=== PATIENT | female | born 1975 | race African-American/Black ===

== ENCOUNTER 2019-12-04 19:02 | Emergency (ER) | payer OTHER ==
[2019-12-04] MEDS ORDERED: SODIUM CHLORIDE 1,000 ML IV ONE (19:09)
[2019-12-04] MEDS ORDERED: METOCLOPRAMIDE HCL INJECTION 10 MG/2 ML VIAL IVPUSH STA (19:09)
--- NOTE | 2019-12-04 19:09 | PDOC ---
Rapid Medical Evaluation Time Seen by Provider: 12/04/19 19:03 Medical Evaluation: Allergies Allergy/AdvReac Type Severity Reaction Status Date / Time No Known Allergies Allergy Verified 07/27/15 10:31 12/04/19 19:04 I have performed a brief in-person evaluation of this patient. CC: coronal headache followed by expressive aphasia starting at 1200 noon. Now at baseline. PE: No focal findings. [place] negative. Orders: labs, urine, ekg Patient will proceed to ED for further evaluation. Discharge Disposition - Diagnosis Headache - Referrals - Patient Instructions - Post Discharge Activity
[2019-12-04 19:16] VITALS: TEMP 98.4; BMI 30.4
--- NOTE | 2019-12-04 19:20 | PDOC ---
History of Present Illness - General Chief Complaint: Headache Stated Complaint: HEADACHE Time Seen by Provider: 12/04/19 19:03 History Source: Patient Exam Limitations: No Limitations - History of Present Illness Initial Comments: 44 y.o female with history of DM, HTN, and smoking presents to the ED with a headache that started today. She describes sudden onset left sided GRAY that became constant, and she describes as pressure. She said that at the time she had difficulty finding words, but no difficulty speaking. She reported some left arm numbness, which she attributes may be from ulnar nerve surgery in the past, but is unsure. She reported left arm weakness, some confusion, dizziness, and nausea. She was recently prescribed losartan but hasn't yet started it. Denied vision changes, ataxia, chest pain, SOB, syncope, vomiting. 12/04/19 20:08 tPA Exclusion checklist 3-4.5h - Time Elapsed Date last known well: 12/04/19 Time last known well: 12:00 Elaspsed time: Day(s) and 10 Hour(s) and 10 Minutes - Thrombolytic Therapy Candidate Is patient eligible for thrombolytic therapy: No - Relative Exclusion Criteria 3-4.5 hr Stroke severity too mild (non-disabling): Yes - Ineligibility reason(s) Reasons No tPA given: Outside of window - delayed arrival, See reason(s) noted above (nihss 0) NIH Stroke Scale - Last Known Well Date/Time & Onset Date Last Known Well: 12/04/19 Time Last Known Well: 12:00 - Initial Evaluation Level of consciousness: Alert Ask patient the month and their age: Answers both correctly Ask patient to open & close eyes; make fist and let go: Obeys both correctly Best gaze (horizontal eye movement): Normal Visual field testing: No visual field loss Facial paresis (Show teeth/raise eyebrows/close eyes tight): Normal symmetrical movement Motor Function: Left Arm: Normal Motor Function: Right Arm: Normal (extends arm 90 (or 45) degrees for 10 seconds without drift Motor Function: Left Leg: Normal (extends leg 30 degrees for 5 seconds without drift) Motor Function: Right Leg: Normal (extends leg 30 degrees for 5 seconds without drift) Limb Ataxia: No ataxia Sensory(Use pinprick test arms,legs,trunk,face/side to side): Normal Best language (Describe picture, name items, read sentences): No Aphasia Dysarthria (read several words): Normal articulation Extinction and Inattention: No abnormality - Total Score NIH Stroke Scale Score: 0 Past History - Medical History Allergies/Adverse Reactions: Allergies Allergy/AdvReac Type Severity Reaction Status Date / Time No Known Allergies Allergy Verified 12/04/19 19:11 Home Medications: Ambulatory Orders Aspirin [ASA -] 81 mg PO DAILY 09/30/14 Cefdinir [Omnicef -] 300 mg PO BID #20 capsule 09/30/14 Simvastatin [Zocor -] 20 mg PO DAILY 09/30/14 metFORMIN HCL [Glucophage] 2,000 mg PO DAILY 09/30/14 COPD: No Diabetes: Yes HTN: Yes (NEW DIAGNOSED) Hypercholesterolemia: Yes - Psycho-Social/Smoking History Smoking History: Never smoked Have you smoked in the past 12 months: No Number of Cigarettes Smoked Daily: 3 Information on smoking cessation initiated: No 'Breaking Loose' booklet given: 09/30/14 - Substance Abuse Hx (Audit-C & DAST Scrn) How often the patient has a drink containing alcohol: Never Score: In Men: 4 or > Positive; In Women: 3 or > Positive: 0 Screen Result (Pos requires Nsg. Audit-10AR): Negative In the last yr the pt used illegal drug/Rx for NonMed reason: No Score: Yes response is considered Positive: 0 Screen Result (Positive result requires Nsg. DAST-10): Negative Review of Systems - Review of Systems Able to Perform ROS?: Yes Is the patient limited Chinese proficient: No Constitutional: No: Chills, Fever HEENTM: No: Eye Pain, Recent change in vision Respiratory: No: Cough, Shortness of Breath Cardiac (ROS): Yes: Lightheadedness. No: Chest Pain, Syncope ABD/GI: Yes: Nausea. No: Constipated, Diarrhea, Vomiting : No: Burning, Dysuria Musculoskeletal: Yes: Back Pain Neurological: Yes: Headache, Numbness, Weakness, Dizziness. No: Tingling, Unsteady Gait, Ataxia All Other Systems: Reviewed and Negative *Physical Exam - Vital Signs Last Vital Signs Temp Pulse Resp BP Pulse Ox 98.4 F 89 18 187/112 H 99 12/04/19 19:03 12/04/19 19:03 12/04/19 19:03 12/04/19 19:03 12/04/19 19:03 - Physical Exam General Appearance: Yes: Nourished, Appropriately Dressed. No: Apparent Distress HEENT: positive: EOMI, OSORIO, Normal Voice Neck: positive: Trachea midline Respiratory/Chest: positive: Lungs Clear, Normal Breath Sounds Cardiovascular: positive: Regular Rhythm, Regular Rate, S1, S2. negative: Edema Vascular Pulses: Dorsalis-Pedis (R): 2+, Doralis-Pedis (L): 2+ Gastrointestinal/Abdominal: positive: Soft. 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 negative: Finger to Nose ED Treatment Course - LABORATORY CBC & Chemistry Diagram: 12/04/19 19:30 12/04/19 19:30 Medical Decision Making - Medical Decision Making 44 y.o female with history of DM, HTN, and smoking presents to the ED with a sudden onset left sided headache with aphasia, left arm numbness, weakness, and dizziness and without vision changes, CP, or SOB. On exam she was AOx3, neuro exam was intact. Differential includes but is not limited to tension headache, migraine headache, CVA, TIA, and temporal arteritis. Temporal arteritis was a concern due to pain at left temporal region, but no vision changes and CRP negative. Noncontrast Head CT was negative, unlikely CVA. EKG was normal rate, rhythm, axis without ST elevation or depression. She was given IV tylenol and reglan with improvement of her nausea and headache. I spoke with Neurology, Dr. Cartagena, who stated that it's more likely a Complex Migraine, to start her on 20mg Nadalol PO qday and to follow up with him outpatient. Discharge - Discharge Information Problems reviewed: Yes Clinical Impression/Diagnosis: Headache Qualifiers: Headache type: unspecified Headache chronicity pattern: acute headache Intractability: not intractable Qualified Code(s): R51 - Headache Condition: Stable Disposition: HOME - Admission No - Follow up/Referral Referrals: Teresa Gallo [Primary Care Provider] - - Patient Discharge Instructions Patient Printed Discharge Instructions: DI for Migraine Additional Instructions: You came into the ED for sudden onset headache, with difficulty finding words, and left arm weakness and numbness. We did bloodwork which came back normal. Head CT scan was normal, so unlikely stroke. We spoke with Neurologist Dr. Cartagena who thinks it could be migraines, to start you on Nadalol and to follow up with him. Return to the ED if you have worsening dizziness/lightheadedness, numbness/tingling/weakness, or difficulty with speech or walking. Print Language: LITHUANIAN - Post Discharge Activity
[2019-12-04] MEDS ORDERED: METOCLOPRAMIDE HCL INJECTION 10 MG/2 ML VIAL ONE (19:29)
[2019-12-04] MEDS ORDERED: ACETAMINOPHEN 1000 MG/100 ML VIAL (NON FORMULARY) IVPB ONE (20:03)
[2019-12-04] MEDS ORDERED: ACETAMINOPHEN INJECTION 100 ML IVPB ONE (20:06)
[2019-12-04 20:17] LABS: BASO % 0.3 % (0-2.0); EOS % 1.3 % (0-4.5); HEMATOCRIT 39.4 % (32.4-45.2); HEMOGLOBIN 13.3 GM/dL (10.7-15.3); LYMPH % 20.5 % (8-40); MCH 29.4 pg (25.7-33.7); MCHC 33.8 g/dl (32.0-36.0); MEAN CELL VOLUME 87.1 fl (80-96); MONO % 5.3 % (3.8-10.2); NEUT % 72.6 % (42.8-82.8); PLATELET COUNT 266 K/MM3 (134-434); RBC 4.52 M/mm3 (3.60-5.2); RDW 16.2 % (11.6-15.6); WHITE BLOOD COUNT 7.8 K/mm3 (4.0-10.0)
[2019-12-04 20:24] LABS: PROTHROMBIN TIME (PATIENT) 11.8 SEC (9.7-13.0)
[2019-12-04 20:45] LABS: ALBUMIN 3.8 g/dl (3.4-5.0); ALK PHOS 56 U/L (45-117); ANION GAP 8 MMOL/L (8-16); BILIRUBIN,TOTAL 0.6 mg/dL (0.2-1); BLOOD UREA NITROGEN 11.8 mg/dL (7-18); CALCIUM 9.4 mg/dL (8.5-10.1); CHLORIDE 105 mmol/L (98-107); CO2 23 mmol/L (21-32); CREATININE 0.7 mg/dL (0.55-1.3); GLUCOSE,RANDOM 100 mg/dL (74-106); POTASSIUM 3.8 mmol/L (3.5-5.1); SGOT/AST 14 U/L (15-37); SGPT/ALT 22 U/L (13-61); SODIUM 136 mmol/L (136-145); TOT PROT 7.2 g/dl (6.4-8.2)
--- NOTE | 2019-12-04 20:48 | PDOC ---
Documentation entered by Kristen Baird SCRIBE, acting as scribe for Erica Cai DO. Erica Cai DO: This documentation has been prepared by the isis, Kristen Baird SCRIBE, under my direction and personally reviewed by me in its entirety. I confirm that the documentation accurately reflects all work, treatment, procedures, and medical decision making performed by me. Attending Attestation - Resident Resident Name: Rafita Fernandez - ED Attending Attestation I have performed the following: I have examined & evaluated the patient, The case was reviewed & discussed with the resident, I agree w/resident's findings & plan, Exceptions are as noted - HPI HPI: 12/04/19 19:29 Patient is a 44 year old female with a significant past medical history of "nerve surgery", NIDDM, HTN, and smoking, who presents to the ED with a headache since earlier today. Patient was smoking a cigarette when she felt the sudden onset of left sided headache that has been constant and has not moved. Patient describes the pain as being a "pressure". Patient also disclosed some left arm numbness which could be related to "ulnar surgery in the past", some confusion, dizziness and nausea. Patient reported that she has been hvaing a hard time "finding words" but denies difficulty speaking. Patient denies: syncope, any changes in vision, ataxia, vomiting, SOB, chest pain Allergies: NKDA PCP: Dr. Teresa Cooley - Physicial Exam PE: 12/04/19 20:40 Gen: aaox3, nad heent: PERRL, EOMI, MMM neck: supple heart: +s1s2 reg lungs: cta b/l abd: soft, nt/nd +bs ext: no c/c/e neuro: cn ii-xii grossly intact, L temporal ttp- no pulsatile hard vessel palpated, muscle strength 5/5 UE and LE, sensation intact other than L forearm where she underwent ulnar nerve sx with persistent paresthesias to the L forearm in the ulnar distribution, normal finger to nose, no focal neuro deficits at this time - Medical Decision Making 12/04/19 20:44 a/p: 44yo female with acute onset of GRAY today with L arm weakness/expressive aphasia and worsening paresthesias -gray improved now -temporal ttp -pt with uncontrolled BP - picked up losartan today, but did not take it -neuro intact -will send labs, ct head, meds for GRAY, crp/esr given temporal ttp -will discuss with neurology 12/04/19 20:[address] neg crp neg will discuss with Neurology - Dr. Olguin and obs pt for poss tia 12/04/19 21:19 resident discussed the case with dr olguin who requests nadolol and outpt follow up with him in the office more concerned for complex migraine and less TIA will order nadolol in the ER 12/04/19 21:31 pt feeling much better ambulatory in the er with a steady gait 12/05/19 00:11 pt felt better Heart Score/ECG Review - ECG Intrepretation Comment:: 12/04/19 20:59 sinus at 73, nl axis, nl interval, q waves septally which are age indeterminate, no acute st/t wave findings Discharge - Discharge Information Problems reviewed: Yes Clinical Impression/Diagnosis: Headache Condition: Stable Disposition: HOME - Admission No - Additional Discharge Information Prescriptions: Nadolol 20 mg PO DAILY #14 tablet - Follow up/Referral Referrals: Teresa Gallo [Primary Care Provider] - Ry Olguin MD [Staff Physician] - - Patient Discharge Instructions Patient Printed Discharge Instructions: DI for Migraine Additional Instructions: You came into the ED for sudden onset headache, with difficulty finding words, and left arm weakness and numbness. We did bloodwork which came back normal. Head CT scan was normal, so unlikely stroke. We spoke with Neurologist Dr. Olguin who thinks it could be migraines, to start you on Nadalol and to follow up with him. Return to the ED if you have worsening dizziness/lightheadedness, numbness/tingling/weakness, or difficulty with speech or walking. Print Language: ROMANIAN - Post Discharge Activity
[2019-12-04 21:04] LABS: ERYTHROCYTE SEDIMENTATION RATE 9 mm/hr (0-20)
[2019-12-04] MEDS ORDERED: NADOLOL 20 MG TABLET (FP) PO SCH (21:30)
[2019-12-04 22:06] LABS: URINE APPEARANCE TURBID; URINE BILIRUBIN NEGATIVE (NEGATIVE); URINE COLOR YELLOW; URINE GLUCOSE (UA) NEGATIVE (NEGATIVE); URINE KETONE NEGATIVE (NEGATIVE); URINE LEUK ESTERASE NEGATIVE (NEGATIVE); URINE NITRITE NEGATIVE (NEGATIVE); URINE PROTEIN NEGATIVE (NEGATIVE)
[2019-12-04 22:22] VITALS: BP 161/89; PULSE 85
--- NOTE | 2019-12-05 10:23 | EKG ---
Test Reason : Blood Pressure : / mmHG Vent. Rate : 073 BPM Atrial Rate : 073 BPM P-R Int : 172 ms QRS Dur : 086 ms QT Int : 428 ms P-R-T Axes : 061 020 028 degrees QTc Int : 471 ms NORMAL SINUS RHYTHM POSSIBLE LEFT ATRIAL ENLARGEMENT SEPTAL INFARCT , AGE UNDETERMINED ABNORMAL ECG WHEN COMPARED WITH ECG OF 13-AUG-2004 10:54, SEPTAL INFARCT IS NOW PRESENT Confirmed by FRANCOIS MOTA, KUNAL ([id number]) on 12/05/2019 10:22:41 AM Referred By: Confirmed By:KUNAL PARRISH MD
== END 2019-12-04 22:20 | disposition home or self-care (01) ==
LOC: JER 19:02
PROC: 3E0333Z Introduction of Anti-inflammatory into Peripheral Vein, Percutaneous Approach (ICD-10-PCS; principal; 2019-12-04)
PROC: 3E033NZ Introduction of Analgesics, Hypnotics, Sedatives into Peripheral Vein, Percutaneous Approach (ICD-10-PCS; 2019-12-04)
PROC: 3E0337Z Introduction of Electrolytic and Water Balance Substance into Peripheral Vein, Percutaneous Approach (ICD-10-PCS; 2019-12-04)
DX: R51 Headache (principal)
CPT/HCPCS: 36415; 70450-TC; 71045-TC-FY; 80053; 81003; 82550; 84484; 84703; 85025; 85610; 85651; 85730; 86140; 86850; 86900; 86901; 87086; 93005; 93010; 99285-25; J0131

== ENCOUNTER 2021-09-19 03:33 | Observation (INO) | payer OTHER ==
[2021-09-19 03:37] VITALS: BMI 29.2
[2021-09-19] MEDS ORDERED: ASPIRIN 81 MG CHEWABLE TABLETS PO ONE (04:16)
[2021-09-19] MEDS ORDERED: ACETAMINOPHEN 1000 MG/100 ML BAG IVPB ONE (04:16)
[2021-09-19] MEDS ORDERED: ACETAMINOPHEN INJECTION 100 ML IVPB ONE (04:18)
[2021-09-19] MEDS ORDERED: ASPIRIN 81 MG CHEWABLE TABLETS ONE (04:18)
[2021-09-19 04:24] LABS: BASO % 0.7 % (0-2.0); EOS % 1.4 % (0-4.5); HEMATOCRIT 37.1 % (32.4-45.2); HEMOGLOBIN 12.5 GM/dL (10.7-15.3); LYMPH % 35.7 % (8-40); MCH 29.3 pg (25.7-33.7); MCHC 33.6 g/dl (32.0-36.0); MEAN CELL VOLUME 87.1 fl (80-96); MEAN PLT VOLUME 7.4 fl (7.5-11.1); MONO % 8.8 % (3.8-10.2); NEUT % 53.4 % (42.8-82.8); PLATELET COUNT 233 10^3/uL (134-434); RBC 4.26 M/mm3 (3.60-5.2); RDW 15.4 % (11.6-15.6); WHITE BLOOD COUNT 4.9 K/mm3 (4.0-10.0)
[2021-09-19 04:44] LABS: INR 1.03 (0.83-1.09); PROTHROMBIN TIME (PATIENT) 11.9 SEC (9.7-13.0)
[2021-09-19 04:46] LABS: ACTIVATED PTT 29.8 SECONDS (25.2-36.5)
[2021-09-19 05:23] LABS: ALBUMIN 3.5 g/dl (3.4-5.0); BLOOD UREA NITROGEN 12.4 mg/dL (7-18)
[2021-09-19 05:26] LABS: CREATININE 0.8 mg/dL (0.55-1.3)
[2021-09-19 05:28] LABS: BILIRUBIN,TOTAL 0.2 mg/dL (0.2-1)
[2021-09-19 06:09] VITALS: TEMP 98.5
[2021-09-19 09:22] LABS: EPI CELLS >36 /uL (0-25.1); HYALINE CASTS 3 /uL (0-3.1); PH,URINE 6.5 (5.0-8.0); URINE APPEARANCE CLEAR; URINE BACTERIA 550 /uL (0-1359); URINE BILIRUBIN NEGATIVE (NEGATIVE); URINE COLOR YELLOW; URINE GLUCOSE (UA) 2+ (NEGATIVE); URINE KETONE NEGATIVE (NEGATIVE); URINE LEUK ESTERASE NEGATIVE (NEGATIVE); URINE NITRITE NEGATIVE (NEGATIVE); URINE PROTEIN 1+ (NEGATIVE); URINE WBC 11 /uL (0-25.8)
[2021-09-19 09:25] LABS: INR 1.05 (0.83-1.09); PROTHROMBIN TIME (PATIENT) 12.1 SEC (9.7-13.0)
[2021-09-19 09:27] LABS: ACTIVATED PTT 28.9 SECONDS (25.2-36.5)
[2021-09-19] MEDS ORDERED: PANTOPRAZOLE 40 MG TABLET PO ONE ×2 (09:55→10:18)
[2021-09-19] MEDS ORDERED: FOLIC ACID 1 MG TABLET (FP) PO ONE (09:59)
[2021-09-19] MEDS ORDERED: THIAMINE HCL 200 MG/2 ML VIAL IVPB ONE (09:59)
[2021-09-19] MEDS ORDERED: NICOTINE 14 MG/24 HOURS TOPICAL PATCH TD SCH (10:00)
[2021-09-19] MEDS ORDERED: LISINOPRIL 10 MG TABLET PO SCH (10:00)
[2021-09-19] MEDS ORDERED: ENOXAPARIN NA (PORCINE) 40 MG/0.4 ML DISP.SYRIN SQ SCH (10:00)
[2021-09-19] MEDS ORDERED: POTASSIUM CHLORIDE TABS 20 MEQ TABLET.ER (FP) PO ONE (10:03)
[2021-09-19] MEDS ORDERED: FOLIC ACID 1 MG TABLET (FP) ONE (10:18)
[2021-09-19] MEDS ORDERED: LISINOPRIL 10 MG TABLET ONE (10:18)
[2021-09-19] MEDS ORDERED: ENOXAPARIN NA (PORCINE) 40 MG/0.4 ML DISP.SYRIN SQ ONE (10:18)
[2021-09-19] MEDS ORDERED: THIAMINE HCL 200 MG/2 ML VIAL ONE (10:18)
[2021-09-19] MEDS ORDERED: LOSARTAN POTASSIUM 50 MG TABLET PO SCH (10:30)
[2021-09-19] MEDS ORDERED: CHOLECALCIFEROL (VIT D3) 1,000 UNIT (25 MCG) TABLET PO SCH (10:30)
[2021-09-19] MEDS ORDERED: CHOLECALCIFEROL (VIT D3) 1,000 UNIT (25 MCG) TABLET ONE (10:50)
[2021-09-19] MEDS ORDERED: LOSARTAN POTASSIUM 50 MG TABLET ONE (10:50)
[2021-09-19] MEDS ORDERED: INSULIN SLIDING SCALE (NOVOLOG) 1 VIAL SQ SCH (11:00)
[2021-09-19 12:05] LABS: MAGNESIUM 1.8 mg/dL (1.8-2.4)
[2021-09-19 13:46] VITALS: BP 132/66; PULSE 78
[2021-09-19 15:58] LABS: URINE RBC 29.4 /uL (0-23.9)
[2021-09-19] MEDS ORDERED: ATORVASTATIN CA 20 MG TABLET (FP) PO SCH (22:00)
[2021-09-19] MEDS ORDERED: ATORVASTATIN CA 40 MG TABLET (FP) PO SCH (22:00)
[2021-09-20] MEDS ORDERED: FOLIC ACID 1 MG TABLET (FP) PO SCH (10:00)
[2021-09-20] MEDS ORDERED: ASPIRIN COATED 81 MG TABLET.EC PO SCH (10:00)
[2021-09-20] MEDS ORDERED: THIAMINE HCL 100 MG TABLET (FP) PO SCH (10:00)
== END 2021-09-19 13:57 | disposition home or self-care (01) ==
LOC: JER 03:33 → JERBED 06:40
PROVIDERS: ADMIT Internal Medicine; ATTEND Internal Medicine
PROC: 3E033NZ Introduction of Analgesics, Hypnotics, Sedatives into Peripheral Vein, Percutaneous Approach (ICD-10-PCS; principal; 2021-09-19)
PROC: 3E023GC Introduction of Other Therapeutic Substance into Muscle, Percutaneous Approach (ICD-10-PCS; 2021-09-19)
PROC: 3E033GC Introduction of Other Therapeutic Substance into Peripheral Vein, Percutaneous Approach (ICD-10-PCS; 2021-09-19)
DX: R07.9 Chest pain, unspecified (principal); E11.9 Type 2 diabetes mellitus without complications; I10 Essential (primary) hypertension; E78.5 Hyperlipidemia, unspecified; I45.81 Long QT syndrome; F10.99 Alcohol use, unspecified with unspecified alcohol-induced disorder; F17.210 Nicotine dependence, cigarettes, uncomplicated
CPT/HCPCS: 36415; 70450-TC; 71045-TC-FY; 71275-TC; 74174-TC; 80053; 80061; 81003; 82962; 83036; 83735; 84100; 84439; 84443; 84484; 84703; 85025; 85610; 85730; 93005; 93010; 93017; 93018; 96372; 96374; 96375; 99285-25; C9803-CS; G0378; U0003; U0005

== ENCOUNTER 2022-10-07 14:43 | Emergency (ER) | payer OTHER ==
[2022-10-07 15:11] VITALS: BP 141/82; PULSE 76; RESP 18; TEMP 98.1; BMI 27.4
[2022-10-07] MEDS ORDERED: FAMOTIDINE 20 MG/50 ML IVPB 20 MG/50 ML MG IVPB ONE ×2 (15:25→16:44)
[2022-10-07] MEDS ORDERED: SODIUM CHLORIDE 0.9% 500 ML INFUS.BAG IV ONE (15:25)
[2022-10-07] MEDS ORDERED: ACETAMINOPHEN 1000 MG/100 ML BAG IVPB ONE (15:25)
[2022-10-07] MEDS ORDERED: ONDANSETRON 4 MG/2 ML VIAL IVPUSH ONE (15:25)
[2022-10-07 15:56] LABS: BASO % 0.4 % (0-2.0); EOS % 1.1 % (0-4.5); HEMATOCRIT 41.6 % (32.4-45.2); HEMOGLOBIN 13.9 GM/dL (10.7-15.3); LYMPH % 27.5 % (8-40); MCH 28.7 pg (25.7-33.7); MCHC 33.5 g/dl (32.0-36.0); MEAN CELL VOLUME 85.6 fl (80-96); MEAN PLT VOLUME 7.9 fl (7.5-11.1); MONO % 5.8 % (3.8-10.2); NEUT % 65.2 % (42.8-82.8); PLATELET COUNT 337 10^3/uL (134-434); RBC 4.86 M/mm3 (3.60-5.2); RDW 14.7 % (11.6-15.6); WHITE BLOOD COUNT 8.5 K/mm3 (4.0-10.0)
[2022-10-07 16:33] LABS: BLOOD UREA NITROGEN 10.3 mg/dL (7-18); CALCIUM 9.2 mg/dL (8.5-10.1); MAGNESIUM 2.1 mg/dL (1.8-2.4)
[2022-10-07 16:38] LABS: CREATININE 0.9 mg/dL (0.55-1.3)
[2022-10-07 16:39] LABS: BILIRUBIN,TOTAL 0.5 mg/dL (0.2-1); TOT PROT 7.6 g/dl (6.4-8.2)
[2022-10-07] MEDS ORDERED: ACETAMINOPHEN INJECTION 100 ML IVPB ONE (16:44)
[2022-10-07] MEDS ORDERED: ONDANSETRON 4 MG/2 ML VIAL ONE (16:44)
[2022-10-07 19:04] LABS: EPI CELLS 22 /uL (0-25.1); HYALINE CASTS 1 /uL (0-3.1); URINE APPEARANCE Clear; URINE BACTERIA 1095 /uL (0-1359); URINE BILIRUBIN Negative (NEGATIVE); URINE COLOR Yellow; URINE GLUCOSE (UA) >=1000 (NEGATIVE); URINE KETONE Negative (NEGATIVE); URINE LEUK ESTERASE Trace (NEGATIVE); URINE NITRITE Negative (NEGATIVE); URINE PROTEIN Negative (NEGATIVE); URINE RBC 16 /uL (0-23.9); URINE WBC 292 /uL (0-25.8)
== END 2022-10-07 19:11 | disposition home or self-care (01) ==
LOC: JER 14:43
PROC: 3E033GC Introduction of Other Therapeutic Substance into Peripheral Vein, Percutaneous Approach (ICD-10-PCS; principal; 2022-10-07)
PROC: 3E033NZ Introduction of Analgesics, Hypnotics, Sedatives into Peripheral Vein, Percutaneous Approach (ICD-10-PCS; 2022-10-07)
PROC: 3E033GC Introduction of Other Therapeutic Substance into Peripheral Vein, Percutaneous Approach (ICD-10-PCS; 2022-10-07)
DX: R11.2 Nausea with vomiting, unspecified (principal); R51.9 Headache, unspecified; R19.7 Diarrhea, unspecified; R10.32 Left lower quadrant pain; K52.9 Noninfective gastroenteritis and colitis, unspecified; Z20.822 Contact with and (suspected) exposure to COVID-19
CPT/HCPCS: 0241U-QW; 36415; 80053; 81003; 83690; 83735; 84703; 85025; 87086; 87491; 87591; 87661; 99284-25

== ENCOUNTER 2022-10-31 15:57 | Emergency (ER) | payer OTHER ==
[2022-10-31 16:04] VITALS: BP 154/83; PULSE 83; RESP 18; TEMP 98.1; BMI 27.4
== END 2022-10-31 17:35 | disposition home or self-care (01) ==
LOC: JERFT 15:57
DX: M54.6 Pain in thoracic spine (principal)
CPT/HCPCS: 99282-25

== ENCOUNTER 2024-03-24 12:12 | Emergency (ER) | payer OTHER ==
[2024-03-24 12:35] VITALS: BP 154/90; PULSE 85; RESP 17; TEMP 98.2; BMI 27.4
[2024-03-24] MEDS ORDERED: LIDOCAINE 5% TOPICAL PATCH ONE ×2 (14:08→16:23)
[2024-03-24] MEDS ORDERED: ACETAMINOPHEN 325 MG TABLET (FP) ONE (14:08)
[2024-03-24] MEDS: LIDOCAINE 5% TOPICAL PATCH TP ONE ×2 (14:32→16:29)
[2024-03-24] MEDS: ACETAMINOPHEN 500 MG TABLET (FP) PO ONE (14:32)
[2024-03-24 14:53] LABS: BASO % 0.5 % (0-2.0); EOS % 0.8 % (0-4.5); HEMATOCRIT 39.2 % (32.4-45.2); HEMOGLOBIN 12.5 GM/dL (10.7-15.3); LYMPH % 30.9 % (8-40); MCH 25.8 pg (25.7-33.7); MEAN CELL VOLUME 80.7 fl (80-96); MEAN PLT VOLUME 7.6 fl (7.5-11.1); MONO % 5.1 % (3.8-10.2); NEUT % 62.7 % (42.8-82.8); PLATELET COUNT 281 10^3/uL (134-434); RBC 4.85 M/mm3 (3.60-5.2); RDW 16.4 % (11.6-15.6); WHITE BLOOD COUNT 8.8 K/mm3 (4.0-10.0)
[2024-03-24 15:08] LABS: POTASSIUM 3.9 mmol/L (3.5-5.1)
[2024-03-24 15:15] LABS: ALBUMIN 3.9 g/dl (3.4-5.0); BLOOD UREA NITROGEN 10.5 mg/dL (7-18)
[2024-03-24 15:18] LABS: CREATININE 0.8 mg/dL (0.55-1.3)
[2024-03-24 15:19] LABS: BILIRUBIN,TOTAL 0.6 mg/dL (0.2-1); TOT PROT 7.7 g/dl (6.4-8.2)
[2024-03-24 15:24] LABS: CALCIUM 9.2 mg/dL (8.5-10.1)
[2024-03-24] MEDS ORDERED: LIDOCAINE PATCH REMOVAL MC SCH ×2 (22:00)
== END 2024-03-24 16:37 | disposition home or self-care (01) ==
LOC: JER 12:12
DX: R07.89 Other chest pain (principal); M25.512 Pain in left shoulder; R09.81 Nasal congestion; R05.9 Cough, unspecified; R53.83 Other fatigue; Z20.822 Contact with and (suspected) exposure to COVID-19
CPT/HCPCS: 0241U-QW; 36415; 71046-TC-FY; 80053; 84484; 85025; 93005; 93010; 99285-25